=== PATIENT | male | born 1985 | race Caucasian/White ===

== ENCOUNTER 2018-02-11 19:26 | Emergency (ER) | payer BC, OTHER ==
[2018-02-11 20:00] VITALS: BP 118/66; PULSE 88; RESP 16; TEMP 98.4; O2SAT 97
--- NOTE | 2018-02-11 20:53 | ED PDOC ---
HPI: General Adult Chief Complaint (Provider): Facial injury History Per: Patient History/Exam Limitations: no limitations Onset/Duration Of Symptoms: Unknown Have you had recent travel within the past 21 days to any of the following countries: [place], [place], [place] or [place]?: No Additional Complaint(s): 32 yo male with no medical problems presents with facial injury. Pt initially sleeping in bed and urinated on himself. Pt states he has been drinking today and tripped hitting his face on the ground. Unknown LOC. Denies SI/HI <Safia Rivera - Last Filed: 02/11/18 23:46> <Meche Veliz - Last Filed: 02/14/18 07:12> Time Seen by Provider: 02/11/18 20:06 Chief Complaint (Nursing): Abnormal Skin Integrity Past Medical History Reviewed: Historical Data, Nursing Documentation, Vital Signs Vital Signs: Last Vital Signs Temp 98.4 F 02/11/18 19:58 Pulse 88 02/11/18 19:58 Resp 16 02/11/18 19:58 BP 118/66 02/11/18 19:58 Pulse Ox 97 02/11/18 19:58 - Medical History PMH: No Chronic Diseases Denies: Diabetes, Hepatitis, HIV, HTN, Seizures, Sexually Transmitted Disease - Surgical History Surgical History: No Surg Hx - Family History Family History: States: No Known Family Hx - Living Arrangements Living Arrangements: With Family - Social History Current smoker - smoking cessation education provided: No <Safia Rivera - Last Filed: 02/11/18 23:46> Vital Signs: Last Vital Signs Temp 98.4 F 02/11/18 19:58 Pulse 88 02/11/18 19:58 Resp 16 02/11/18 19:58 BP 118/66 02/11/18 19:58 Pulse Ox 97 02/11/18 23:47 <Meche Veliz - Last Filed: 02/14/18 07:12> - Allergies Allergies/Adverse Reactions: Allergies Allergy/AdvReac Type Severity Reaction Status Date / Time No Known Allergies Allergy Verified 02/11/18 20:00 Review of Systems ROS Statement: Except As Marked, All Systems Reviewed And Found Negative Constitutional: Negative for: Fever, Chills Neurological: Negative for: Weakness, Numbness <Safia Rivera - Last Filed: 02/11/18 23:46> - ECG O2 Sat by Pulse Oximetry: 97 <Safia Rivera - Last Filed: 02/11/18 23:46> Medical Decision Making Medical Decision Makin - when I came out of another pt room, in holding area, I was informed by registration that patient wanted to leave and she pointed him in the direction of the door. Charge nurse Anaid immediately notified. <Safia Rivera - Last Filed: 02/11/18 23:46> Disposition - Disposition Disposition Time: 20:42 <Safia Rivera - Last Filed: 02/11/18 23:46> - Patient ED Disposition Is Patient to be Admitted: No - Disposition Disposition: Left W/O Treatment <Meche Veliz - Last Filed: 02/14/18 07:12> - Clinical Impression Clinical Impression: Alcohol abuse, Facial injury - Disposition Condition: UNKNOWN Forms: [employer] (Kyrgyz)
== END 2018-02-11 20:35 | disposition left against medical advice (07) ==
LOC: H.ER 19:26
DX: F10.10 Alcohol abuse, uncomplicated (principal); S09.93XA Unspecified injury of face, initial encounter; W01.0XXA Fall on same level from slipping, tripping and stumbling without subsequent striking against object, initial encounter; Y92.89 Other specified places as the place of occurrence of the external cause
CPT/HCPCS: 99283; G0480

== ENCOUNTER 2018-04-30 19:09 | Emergency (ER) | payer BC, OTHER ==
[2018-04-30 19:16] VITALS: BP 135/91; TEMP 98.3; O2SAT 99
[2018-04-30] MEDS ORDERED: Sodium Chloride 0.9% 1,000 ML IV STA (19:33)
--- NOTE | 2018-04-30 20:34 | ED PDOC ---
Lower Extremity Pain/Injury Time Seen by Provider: 04/30/18 19:22 Chief Complaint (Nursing): Lower Extremity Problem/Injury Chief Complaint (Provider): Lower extremity problem/injury History Per: Patient History/Exam Limitations: no limitations Onset/Duration Of Symptoms: Days (1x) Current Symptoms Are (Timing): Still Present Severity: Moderate Additional Complaint(s): 32 year old male with no pertinent past medical history presents to the ED for an evaluation of atraumatic bilateral knee pain that started this morning. Patient reports also developing 1x episode of vomiting and 2x episodes of diarrhea. Patient reports going to [facility] earlier today, and was told that the pain was likely due to dehydration. Patient reports taking tylenol and advil at home with no relief. Patient reports that the pain has worsened and is radiating to both of his calves. Patient reports that the pain does not improve or exacerbate with movement or rest. Patient denies having fevers, cough, congestion, rashes, chest pain, or shortness of breath. PMD: None provided. Past Medical History Reviewed: Historical Data, Nursing Documentation, Vital Signs Vital Signs: Last Vital Signs Temp 98.3 F 04/30/18 19:13 Pulse 84 04/30/18 19:13 Resp 18 04/30/18 19:13 BP 135/91 H 04/30/18 19:13 Pulse Ox 99 04/30/18 19:13 EFRAIN Report Viewed: Yes - Medical History PMH: No Chronic Diseases Denies: Diabetes, Hepatitis, HIV, HTN, Seizures, Sexually Transmitted Disease - Family History Family History: States: No Known Family Hx - Social History Alcohol: None Drugs: Denies - Home Medications Home Medications: Ambulatory Orders Medication Instructions Recorded Meloxicam [Mobic] 15 mg PO DAILY PRN #10 tab 04/30/18 - Allergies Allergies/Adverse Reactions: Allergies Allergy/AdvReac Type Severity Reaction Status Date / Time No Known Allergies Allergy Verified 02/11/18 20:00 Review of Systems ROS Statement: Except As Marked, All Systems Reviewed And Found Negative Constitutional: Negative for: Fever ENT: Negative for: Nose Congestion Cardiovascular: Negative for: Chest Pain Respiratory: Negative for: Cough, Shortness of Breath Musculoskeletal: Positive for: Other (bilateral knee pain radiates to bilateral calves) Skin: Negative for: Rash Physical Exam - Reviewed Nursing Documentation Reviewed: Yes Vital Signs Reviewed: Yes - Physical Exam Appears: Positive for: Non-toxic, In Acute Distress (moderate painful distress) Head Exam: Positive for: ATRAUMATIC, NORMOCEPHALIC Skin: Positive for: Normal Color, Warm, Dry Pulses-Dorsalis Pedis (L): 2+ Pulses-Dorsalis Pedis (R): 2+ Extremity: Positive for: Normal ROM (both knees: patient able to extend both knees.), Other (bilateral knees: hypertrophic skin, (-) warmth, (-) erythema, (- ) break in skin integrity. (-) homans sign bilaterally). Negative for: Calf Tenderness ((-) calf swelling) Neurologic/Psych: Positive for: Alert, Oriented (3x) - Laboratory Results Result Diagrams: 04/30/18 20:15 04/30/18 20:15 - ECG ECG: Positive for: Interpreted By Ct ECG Rhythm: Positive for: Sinus Rhythm. Negative for: ST/T Changes Rate: 79 O2 Sat by Pulse Oximetry: 99 (RA) Pulse Ox Interpretation: Normal Medical Decision Making Medical Decision Makin:22 Initial impression: 32 year old male with bilateral knee pain Initial plan: * XRay knee bilat 3 views * CMP * creatine phosphate * drug screen urine * magnesium * CBC with diff * blood culture * influenza AB * urinalysis * IV NS 1,000 ml IV 1,000 mls/hr * toradol 30 mg IM * zofran 4 mg IVP * reevaluation 21:20 Patient with continued pain. Magnesium is 1.2, potassium is 3.3. Case discussed with who recommends an EKG and electrolyte abnormality correction. Patient's LFTs are elevated. Patient admits that he drank a lot of sake this weekend as it was his friend's birthday. Patient reports taking a total of 1500 mg tylenol this afternoon for the knee pain. 2229 On re-evaluation, pt. sleeping comfortably and easily arousable. Further states he used to drink daily for over a year and now only drinks on the weekends. Reports good relief of pain. Gait steady, unassisted. Case d/w Dr. Van who agrees with plan and disposition. Pt. informed of plan and advised to f/u with Dr. Solis for further evaluation but is to return to ED immediately if symptoms worsen. Pt. verbalized understanding of necessary f/u and care. Scribe Attestation: Documented bySindy Llanos, acting as a scribe for Filiberto Da Silva Provider Scribe Attestation: All medical record entries made by the Scribe were at my direction and personally dictated by me. I have reviewed the chart and agree that the record accurately reflects my personal performance of the history, physical exam, medical decision making, and the department course for this patient. I have also personally directed, reviewed, and agree with the discharge instructions and disposition. Disposition - Clinical Impression Clinical Impression: Transaminitis, Hypomagnesemia, Hypokalemia - Patient ED Disposition Is Patient to be Admitted: No - Disposition Referrals: Mario Solis MD [Staff Provider] - Disposition: Routine/Home Disposition Time: 23:00 Condition: IMPROVED Additional Instructions: STOP DRINKING ALCOHOL DRINK PLENTY OF WATER AND STAY HYDRATED FOLLOW UP WITH DR. SOLIS FOR FURTHER EVALUATION RETURN TO ED IMMEDIATELY IF SYMPTOMS WORSEN [place], thank you for letting us take care of you today. Your provider was Anastasiia Van MD and you were treated for LEG PAIN, CHILLS. The emergency medical care you received today was directed at your acute symptoms. If you were prescribed any medication, please fill it and take as directed. It may take several days for your symptoms to resolve. Return to the Emergency Department if your symptoms worsen, do not improve, or if you have any other problems. Please contact your doctor or call one of the physicians/clinics you have been referred to that are listed on the Patient Visit Information form that is included in your discharge packet. Bring any paperwork you were given at discharge with you along with any medications you are taking to your follow up visit. Our treatment cannot replace ongoing medical care by a primary care provider outside of the emergency department. Thank you for allowing the [facility] team to be part of your care today. If you had an X-Ray or CT scan: A Radiologist will review the ED reading if any change in treatment is needed we will contact you. If you had a blood, urine, or wound culture: It will take several days for the results, if any change in treatment is needed we will contact you. If you had an STI test: It will take 48 hours for the results. Please call after 1 week if you have not heard back. Prescriptions: Meloxicam [Mobic] 15 mg PO DAILY PRN #10 tab PRN Reason: Pain Instructions: Alcohol Use - When Is Drinking a Problem?, Hypokalemia (DC), Low Magnesium Level (DC) Forms: [employer] (Polish), [facility] ED School/Work Excuse Print Language: MALAY
[2018-04-30] MEDS ORDERED: Oxycodone/Acetaminophen 5/325 mg Tab PO STA (20:37)
[2018-04-30 20:52] LABS: BASO # 0.1 K/uL (0.0-0.2); EOS # 0.1 K/uL (0.0-0.7); HEMOGLOBIN 15.2 g/dL (12.0-18.0); LYMPH # 0.8 K/uL (1.0-4.3); LYMPH % 11.4 % (20.0-40.0); MEAN CELL VOLUME 92.3 fl (80.0-94.0); MEAN CORPUSCULAR HEMOGLOBIN 31.8 pg (27.0-31.0); MEAN CORPUSCULAR HGB CONC 34.5 g/dL (33.0-37.0); MEAN PLATELET VOLUME 7.2 fl (7.2-11.7); MONO # 0.3 K/uL (0.0-0.8); NEUT % 82.6 % (50.0-75.0); NRBC % 0.1 % (0.0-0.0); RBC 4.77 Mil/uL (4.40-5.90); RED CELL DISTRIBUTION WIDTH 12.9 % (11.5-14.5); WHITE BLOOD COUNT 7.2 K/uL (4.8-10.8)
[2018-04-30 21:00] LABS: ALB/GLOB RATIO 1.4 (1.0-2.1); ALBUMIN 4.2 g/dL (3.5-5.0); ALT/SGPT 493 U/L (21-72); BLOOD UREA NITROGEN 13 mg/dl (9-20); CALCIUM 9.5 mg/dL (8.4-10.2); GFR NON-AFRICAN AMERICAN > 60
[2018-04-30] MEDS ORDERED: Magnesium Sulfate 2 gm/50 ml 2 GM/50 ML BAG IVPB ONE (21:13)
[2018-04-30 21:17] LABS: AST/SGOT 843 U/L (17-59)
[2018-04-30] MEDS ORDERED: Magnesium Sulfate 2 gm/50 ml 2 GM/50 ML BAG ONE (21:38)
[2018-04-30 22:12] VITALS: PULSE 79
[2018-04-30] MEDS ORDERED: Potassium Chloride 20 mEq ER Tab PO STA (22:49)
[2018-04-30] MEDS ORDERED: Potassium Chloride 20 mEq ER Tab PO ONE (23:01)
[2018-05-01 00:16] VITALS: RESP 16
--- NOTE | 2018-05-01 10:11 | RAD ---
Date of service: 04/30/2018 PROCEDURE: Bilateral Knee Radiographs. HISTORY: pain COMPARISON: None. FINDINGS: BONES: Right Knee: No acute fracture. Left Knee: No acute fracture. JOINTS: Right Knee: Unremarkable. Left knee: Unremarkable. SOFT TISSUES: Right Knee: Normal. Left Knee: Normal. JOINT EFFUSION: Right Knee: None. Left Knee: None. OTHER FINDINGS: None. IMPRESSION: No demonstrated fracture or dislocation.
--- NOTE | 2018-05-01 19:44 | CARD ---
APPROVED REPORT Date of service: 04/30/2018 EKG Measurement Heart [id number] <Conclusion> Normal sinus rhythm Normal ECG
== END 2018-04-30 23:28 | disposition home or self-care (01) ==
LOC: H.ER 19:09
DX: R94.5 Abnormal results of liver function studies (principal); E83.42 Hypomagnesemia; E87.6 Hypokalemia; R74.0 Nonspecific elevation of levels of transaminase and lactic acid dehydrogenase [LDH]; M25.569 Pain in unspecified knee
CPT/HCPCS: 73562; 80053; 82550; 83735; 85025; 87040; 87804; 93005; 96374; 96375; 99284; J1885; J2405; J7030

== ENCOUNTER 2018-06-22 00:04 | Emergency (ER) | payer BC ==
[2018-06-22 00:23] VITALS: BP 124/83; PULSE 88; RESP 16; TEMP 98; O2SAT 100
== END 2018-06-22 00:23 | disposition left against medical advice (07) ==
LOC: H.ER 00:04
DX: Z02.89 Encounter for other administrative examinations (principal)

== ENCOUNTER 2018-09-04 02:42 | Emergency (ER) | payer BC ==
[2018-09-04 02:53] VITALS: BP 113/65; PULSE 80; RESP 18; TEMP 97.9; O2SAT 99
[2018-09-04] MEDS ORDERED: Fluorescein 1 mg Ophthalmic Strip ONE (04:28)
--- NOTE | 2018-09-04 04:45 | ED PDOC ---
HPI: Eye Injury/Pain Time Seen by Provider: 09/04/18 03:15 Chief Complaint (Nursing): Eye Problem Chief Complaint (Provider): Right eye pain, redness History Per: Patient History/Exam Limitations: no limitations Onset/Duration Of Symptoms: Days (2) Current Symptoms Are (Timing): Still Present Injury To Eye?: No Additional Complaint(s): 32 yo male with no medical problems presents for evaluation of right eye redness. PT states he was seen by urgent care and given antibiotics for pink eye (erythromycin). Pt states when he woke up this morning he felt like something was in his eye which prompted his visit. Past Medical History Reviewed: Historical Data, Nursing Documentation, Vital Signs Vital Signs: Last Vital Signs Temp 97.9 F 09/04/18 02:49 Pulse 80 09/04/18 02:49 Resp 18 09/04/18 02:49 BP 113/65 09/04/18 02:49 Pulse Ox 99 09/04/18 02:49 Primary Care Provider: [facility] - Medical History PMH: No Chronic Diseases Denies: Diabetes, Hepatitis, HIV, HTN, Seizures, Sexually Transmitted Disease - Surgical History Surgical History: No Surg Hx - Family History Family History: States: No Known Family Hx - Living Arrangements Living Arrangements: With Family - Social History Current smoker - smoking cessation education provided: No - Home Medications Home Medications: Ambulatory Orders Medication Instructions Recorded Meloxicam [Mobic] 15 mg PO DAILY PRN #10 tab 04/30/18 - Allergies Allergies/Adverse Reactions: Allergies Allergy/AdvReac Type Severity Reaction Status Date / Time No Known Allergies Allergy Verified 02/11/18 20:00 Review of Systems ROS Statement: Except As Marked, All Systems Reviewed And Found Negative Constitutional: Negative for: Fever, Chills Eyes: Positive for: Pain, Redness Physical Exam - Reviewed Nursing Documentation Reviewed: Yes Vital Signs Reviewed: Yes - Physical Exam Appears: Positive for: Well, Non-toxic, No Acute Distress Head Exam: Positive for: ATRAUMATIC, NORMAL INSPECTION, NORMOCEPHALIC Skin: Positive for: Normal Color, Warm, DRY Eye Exam: Positive for: EOMI, PERRL, Conjunctival injection, Other ((-) FB seen with fluoro or with upper eye lid inversion. ). Negative for: Normal appearance ENT: Positive for: Normal ENT Inspection Neck: Positive for: Normal, Painless ROM Cardiovascular/Chest: Positive for: Regular Rate, Rhythm Respiratory: Positive for: CNT, Normal Breath Sounds Gastrointestinal/Abdominal: Positive for: Normal Exam, Soft Back: Positive for: Normal Inspection Extremity: Positive for: Normal ROM Neurological/Psych: Positive for: Awake, Alert, Normal Tone - ECG O2 Sat by Pulse Oximetry: 99 Pulse Ox Interpretation: Normal Disposition - Clinical Impression Clinical Impression: Conjunctivitis - Patient ED Disposition Is Patient to be Admitted: No Counseled Patient/Family Regarding: Diagnosis, Need For Followup - Disposition Referrals: Joel Knott MD [Staff Provider] - Disposition: Routine/Home Disposition Time: 04:49 Condition: GOOD Instructions: Conjunctivitis ([place]) Forms: [employer] ([place])
== END 2018-09-04 04:55 | disposition home or self-care (01) ==
LOC: H.ER 02:42
DX: H10.9 Unspecified conjunctivitis (principal)